=== PATIENT | male | born 1970 | race Two or more races ===

== ENCOUNTER 2017-11-18 13:55 | Inpatient (IN) | payer OTHER ==
[2017-11-18 15:13] VITALS: BMI 25.8
--- NOTE | 2017-11-18 18:50 | HP ---
Admission ROS [facility] Chief Complaint: PCP, Marijuana, Alcohol rehab Allergies/Adverse Reactions: Allergies Allergy/AdvReac Type Severity Reaction Status Date / Time No Known Allergies Allergy Verified 11/18/17 17:23 History of Present Illness: 47 yo male with hx of alcohol, nicotine, K2, PCP and marijuana dependence is here seeking rehab. Last detox [facility] 11/13/17 -11/17/17. Chris suicidal / homicidal ideation or hx of suicide attempts. PMHX: asthma, IROQUOIS (L) , learning disability, depression, anxiety. Longest period of sobriety 8 years. Exam Limitations: No Limitations - Ebola screening Have you traveled outside of the country in the last 21 days: No (N) Have you had contact with anyone from an Ebola affected area: No Have you been sick,other than usual withdrawal symptoms: No Do you have a fever: No - Review of Systems Constitutional: Changes in sleep EENT: reports: See HPI, Hearing Loss (Left hearing) Respiratory: reports: Other (reports seen at [facility] for CP and given asthma) Cardiac: reports: No Symptoms Reported GI: reports: No Symptoms Reported : reports: No Symptoms Reported Musculoskeletal: reports: Joint Pain Integumentary: reports: No Symptoms Reported Neuro: reports: No Symptoms reported Endocrine: reports: Increased Thirst Hematology: reports: No Symptoms Reported Psychiatric: reports: Orientated x3, Anxious Other Systems: Reviewed and Negative Patient History - Patient Medical History Hx Anemia: No Hx Asthma: Yes (on inhaler. Last exacrbation 2 weeks ago.) Hx Chronic Obstructive Pulmonary Disease (COPD): No Hx Cancer: No Hx Cardiac Disorders: No Hx Congestive Heart Failure: No Hx Hypertension: No Hx Hypercholesterolemia: No Hx Pacemaker: No HX Cerebrovascular Accident: No Hx Seizures: No Hx Dementia: No Hx Diabetes: No Hx Gastrointestinal Disorders: No Hx Liver Disease: No Hx Genitourinary Disorders: No Hx Sexually Transmitted Disorders: No Hx Renal Disease (ESRD): No Hx Thyroid Disease: No Hx Human Immunodeficiency Virus (HIV): No (Negative 2017) Hx Hepatitis C: No Hx Depression: Yes (On meds. Seen by S because of expressed suicide thoughts. ) Hx Suicide Attempt: No Hx Bipolar Disorder: Yes Hx Schizophrenia: No - Patient Surgical History Past Surgical History: Yes Hx Neurologic Surgery: No Hx Cataract Extraction: No Hx Cardiac Surgery: No Hx Lung Surgery: Yes (RT LUNG) Hx Breast Surgery: No Hx Breast Biopsy: No Hx Abdominal Surgery: No Hx Appendectomy: No Hx Cholecystectomy: No Hx Genitourinary Surgery: No Hx Section: No Hx Orthopedic Surgery: No Anesthesia Reaction: No - PPD History Documented Results: Negative w/proof Date: 08/03/17 PPD to be Administered?: Yes - Smoking Cessation Smoking history: Current every day smoker Have you smoked in the past 12 months: Yes Aproximately how many cigarettes per day: 10 Hx Chewing Tobacco Use: No Initiated information on smoking cessation: Yes 'Breaking Loose' booklet given: 11/18/17 - Substance & Tx. History Hx Alcohol Use: Yes Hx Substance Use: Yes Substance Use Type: Alcohol, Marijuana Hx Substance Use Treatment: Yes (Last detox [facility] 11/13/17 -11/17/17) - Substances Abused Alcohol Route: Oral Frequency: Daily Amount used: 1 pint Date of Last Use: 11/17/17 PCP Route: Smoking Frequency: 3-6 times per week Amount used: 2 bags Age of first use: 47 Date of Last Use: 11/13/17 Marijuana/Hashish Route: Smoking Frequency: Daily Amount used: 2 bags Age of first use: 11 Date of Last Use: 11/17/17 Family Disease History - Family Disease History Family Disease History: Diabetes: Father, Mother (Breast Ca), Heart Disease: Father, CA: Mother Admission Physical Exam S - Vital Signs Vital Signs: Vital Signs - 24 hr 11/18/17 15:10 Temperature 98.6 F Pulse Rate 101 H Respiratory 18 Rate Blood Pressure 117/77 - Physical General Appearance: Yes: Disheveled, Thin, Anxious HEENTM: Yes: EOMI, Normal ENT Inspection, Normocephalic, Normal Voice, CELSA, Pharynx Normal, Tm's normal, Other (IROQUOIS (L), poor dentition) Respiratory: Yes: Chest Non-Tender, Lungs Clear, Normal Breath Sounds, No Respiratory Distress, No Accessory Muscle Use Neck: Yes: Within Normal Limits Breast: Yes: Breast Exam Deferred Cardiology: Yes: Regular Rhythm, Regular Rate Abdominal: Yes: Normal Bowel Sounds, Non Tender, Flat, Soft Genitourinary: Yes: Within Normal Limits Back: Yes: Normal Inspection Musculoskeletal: Yes: full range of Motion, Gait Steady, Pelvis Stable, Back pain Neurological: Yes: resolution agent II-XII NML intact, Fully Oriented, Alert, Motor Strength 5/5, Normal Response, Depressed Affect Integumentary: Yes: Normal Color, Dry, Warm Lymphatic: Yes: Within Normal Limits - Diagnostic (1) Back pain Current Visit: Yes Status: Acute Qualifiers: Back pain location: low back pain Chronicity: acute Back pain laterality : midline Sciatica presence: without sciatica Qualified Code(s): M54.5 - Low back pain (2) Alcohol dependence with uncomplicated withdrawal Current Visit: Yes Status: Acute (3) Nicotine dependence Current Visit: No Status: Acute Qualifiers: Nicotine product type: cigarettes Substance use status: in withdrawal Qualified Code(s): F17.213 - Nicotine dependence, cigarettes, with withdrawal (4) Phencyclidine dependence Current Visit: Yes Status: Acute (5) Asthma Current Visit: Yes Status: Chronic Qualifiers: Asthma severity: unspecified severity Asthma persistence: unspecified Asthma complication type: uncomplicated Qualified Code(s): J45.909 - Unspecified asthma, uncomplicated (6) Depression Current Visit: Yes Status: Chronic Qualifiers: Depression Type: unspecified Qualified Code(s): F32.9 - Major depressive disorder, single episode, unspecified (7) Learning disability Current Visit: Yes Status: Chronic BHS Breath Alcohol Content Breath Alcohol Content: 0 Urine Drug Screen - Results Drug Screen Negative: Yes Urine Drug Screen Results: THC-Marijuana, BZO-Benzodiazepines Inpatient Rehab Admission - Initial Determination Are CD services needed?: Yes Free of communicable disease: Yes Not in need of hospitalization: Yes - Rehab Admission Criteria Previous failed treatment: Yes Poor recovery environment: Yes Comorbidities: Yes Lacks judgement: Yes Patient is meeting Inpatient Rehab admission criteria:: Yes
[2017-11-18] MEDS ORDERED: ALBUTEROL SO4 2.5/IPRATROPIUM 0.5 INH SOL 3 ML VIAL.NEB. NEB PRN (18:57)
[2017-11-18] MEDS ORDERED: ALBUTEROL SO4 8 GM HFA INHALER IH PRN (19:00)
[2017-11-18] MEDS ORDERED: guaiFENesin/D-METHORPHAN HB 10 ML UNIT-DOSE CUPS PO PRN (19:07)
[2017-11-18] MEDS ORDERED: P-EPHED 60MG/TRIPROLIDI 2.5MG TABLET PO PRN (19:07)
[2017-11-18] MEDS ORDERED: LOPERAMIDE HCL 2 MG CAPSULE PO PRN (19:07)
[2017-11-18] MEDS ORDERED: MAG HYDROX/AL HYDROX/SIMETH 30 ML UNIT-DOSE CUP PO PRN (19:07)
[2017-11-18] MEDS ORDERED: MENTHOL/PHENOL 1 EACH UD MM PRN (19:07)
[2017-11-18] MEDS ORDERED: MAGNESIUM HYDROX 2400MG/30ML ORAL SUSPENSION 30 ML CUP PO PRN (19:07)
[2017-11-18] MEDS ORDERED: MAGNESIUM CITRATE 300 ML BOTTLE PO PRN (19:07)
[2017-11-18] MEDS ORDERED: NICOTINE POLACRILEX 2 MG GUM BC PRN (19:07)
[2017-11-18] MEDS ORDERED: ACETAMINOPHEN 325 MG TABLET (FP) PO PRN (19:07)
[2017-11-18] MEDS: THIAMINE HCL 100 MG TABLET (FP) PO SCH (22:07)
[2017-11-18] MEDS: IBUPROFEN 400 MG TABLET (FP) PO PRN (22:07)
[2017-11-18] MEDS: MELATONIN 5 MG TABLETS PO PRN (22:07)
[2017-11-19 02:16] LABS: URINE APPEARANCE CLEAR; URINE BILIRUBIN NEGATIVE (<2.0 mg/dL); URINE COLOR YELLOW; URINE GLUCOSE (UA) NEGATIVE (NEGATIVE); URINE KETONE NEGATIVE (NEGATIVE); URINE LEUK ESTERASE NEGATIVE (NEGATIVE); URINE NITRITE NEGATIVE (NEGATIVE); URINE PROTEIN NEGATIVE (NEGATIVE); URINE UROBILINOGEN NEGATIVE mg/dL (0.2-1.0)
[2017-11-19] MEDS: hydrOXYzine PAMOATE 50 MG CAPSULE (FP) PO PRN ×2 (06:09→21:55)
[2017-11-19] MEDS ORDERED: LIDOCAINE 5% TOPICAL PATCH TP SCH (10:00)
[2017-11-19] MEDS ORDERED: NICOTINE 14 MG/24 HOURS TOPICAL PATCH TD SCH (10:00)
[2017-11-19] MEDS ORDERED: PANTOPRAZOLE 40 MG TABLET (FP) PO SCH (10:00)
[2017-11-19] MEDS ORDERED: PATIENT'S OWN MEDICATION (NON-FORMULARY) (Glycopyrrolate/Formoterol Fum [Bevespi Aerospher IH SCH (10:00)
[2017-11-19] MEDS ORDERED: PRENATAL VITAMINS W/ FOLIC ACID TABLET (FP) PO SCH (10:00)
--- NOTE | 2017-11-19 14:26 | EKG ---
Test Reason : Blood Pressure : / mmHG Vent. Rate : 091 BPM Atrial Rate : 091 BPM P-R Int : 166 ms QRS Dur : 080 ms QT Int : 320 ms P-R-T Axes : 074 063 042 degrees QTc Int : 393 ms NORMAL SINUS RHYTHM NORMAL ECG WHEN COMPARED WITH ECG OF 13-NOV-2017 23:40, NO SIGNIFICANT CHANGE WAS FOUND Confirmed by WINNIE MANJARREZ MD ([id number]) on 11/19/2017 2:26:02 PM Referred By: Confirmed By:WINNIE MANJARREZ MD
[2017-11-19] MEDS: IBUPROFEN 400 MG TABLET (FP) PO PRN (17:41)
[2017-11-19] MEDS: THIAMINE HCL 100 MG TABLET (FP) PO SCH (21:54)
[2017-11-19] MEDS: MELATONIN 5 MG TABLETS PO PRN (21:55)
[2017-11-19] MEDS ORDERED: LIDOCAINE PATCH REMOVAL MC SCH (22:00)
[2017-11-20 07:15] VITALS: BP 115/63; PULSE 70; TEMP 97.5
== END 2017-11-20 08:00 | disposition left against medical advice (07) | DRG 770 ==
LOC: YASAS 13:55 → Y3W 18:17
PROVIDERS: ADMIT Psychiatry & Neurology Psychiatry; ATTEND Psychiatry & Neurology Psychiatry
PROC: HZ2ZZZZ Detoxification Services for Substance Abuse Treatment (ICD-10-PCS; principal; 2017-11-18)
DX: F10.230 Alcohol dependence with withdrawal, uncomplicated (principal); F16.20 Hallucinogen dependence, uncomplicated; F17.213 Nicotine dependence, cigarettes, with withdrawal; F32.9 Major depressive disorder, single episode, unspecified; F81.9 Developmental disorder of scholastic skills, unspecified; J45.909 Unspecified asthma, uncomplicated; M54.5 Low back pain
CPT/HCPCS: 81003; 93005; 93010

== ENCOUNTER 2019-12-15 09:05 | Inpatient (IN) | payer OTHER ==
--- NOTE | 2019-12-15 09:46 | BHS.RME ---
Substance Use & Tx History - Substance Use History Alcohol Substance amount: 6 pack x 24 ounce beer, Vodka one pint Frequency of use: Daily Substance route: Oral Date of Last Use: 12/14/19 Cocaine- Powder Substance amount: 2 grams Frequency of use: Daily Substance route: Inhalation (ex: sniffing or snorting) Date of Last Use: 12/08/19 Marijuana/Hashish Substance amount: 2 joints Frequency of use: More than 3 times per week Substance route: Smoking Date of Last Use: 11/15/19 PCP Substance amount: 2 bags Frequency of use: Less than 3 times per week Substance route: Smoking Date of Last Use: 12/08/19 Physical/Psych/Mental Status - Behavior General Behavior: Increased activity (restlessness, agitation) Eye Contact: Normal - Cooperativeness Cooperativeness: Cooperative - Thinking Thought Processes: Tight Thought content: Future oriented - Physical Health Problems Is patient presently having any pain?: Yes (chronic pain) Does patient presently have any injuries (include location): Yes (right wrist fracture several days ago, [facility]) Does patient currently have a fever: No CIWA Nausea/Vomitin-No Nausea/No Vomiting Muscle Tremors: 1-None Visible, but [place] Anxiety: 2 Agitation: 2 Paroxysmal Sweats: 1-Minimal Palms Moist Orientation: 2-Disoriented Date<2 days Tacttile Disturbances: 0-None Auditory Disturbances: 0-None Visual Disturbances: 0-None Headache: 2-Mild CIWA-Ar Total Score: 10
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
[2019-12-15] MEDS ORDERED: chlordiazePOXIDE HCL 25 MG CAPSULE PO PRN (12:42)
[2019-12-15] MEDS ORDERED: BISMUTH SUBSALICYLATE 524 MG/30 ML UD PO PRN (12:42)
[2019-12-15] MEDS ORDERED: ACETAMINOPHEN 325 MG TABLET (FP) PO PRN (12:42)
[2019-12-15] MEDS ORDERED: MAGNESIUM CITRATE 300 ML BOTTLE PO PRN (12:42)
[2019-12-15] MEDS ORDERED: METHOCARBAMOL 500 MG TABLET PO PRN (12:42)
[2019-12-15] MEDS ORDERED: MAG HYDROX/AL HYDROX/SIMETH 30 ML UNIT-DOSE CUP PO PRN (12:42)
[2019-12-15] MEDS ORDERED: NICOTINE POLACRILEX 2 MG GUM BUC PRN (12:42)
[2019-12-15] MEDS ORDERED: MENTHOL/PHENOL 1 EACH UD MM PRN (12:42)
[2019-12-15] MEDS ORDERED: IBUPROFEN 400 MG TABLET (FP) PO PRN (12:42)
[2019-12-15] MEDS ORDERED: ONDANSETRON *ODT* 4 MG TABLET SL PRN (12:42)
[2019-12-15] MEDS ORDERED: MAGNESIUM HYDROX 2400MG/30ML ORAL SUSPENSION 30 ML CUP PO PRN (12:42)
[2019-12-15] MEDS ORDERED: ALBUTEROL SO4 HFA INHALER IH PRN (12:46)
[2019-12-15 12:48] VITALS: BMI 22.5
[2019-12-15] MEDS ORDERED: ONDANSETRON *ODT* 4 MG TABLET SL ONE (14:00)
[2019-12-15] MEDS: PANTOPRAZOLE 20 MG TABLET PO SCH (14:13)
[2019-12-15] MEDS: NICOTINE 7 MG/24 HOURS TOPICAL PATCH TD SCH (14:14)
[2019-12-15 16:49] LABS: HEMATOCRIT 45.3 % (35.4-49); HEMOGLOBIN 15.2 GM/dL (11.7-16.9); MCH 32.1 pg (25.7-33.7); MCHC 33.7 g/dl (32.0-35.9); MEAN CELL VOLUME 95.4 fl (80-96); MEAN PLT VOLUME 8.7 fl (7.5-11.1); PLATELET COUNT 229 K/MM3 (134-434); RBC 4.74 M/mm3 (4.00-5.60); RDW 14.8 % (11.9-15.9)
[2019-12-15 17:01] LABS: ALBUMIN 3.8 g/dl (3.4-5.0); BILIRUBIN,TOTAL 0.6 mg/dL (0.2-1); BLOOD UREA NITROGEN 18.1 mg/dL (7-18); CREATININE 0.7 mg/dL (0.55-1.3); POTASSIUM 4.2 mmol/L (3.5-5.1); TOT PROT 7.1 g/dl (6.4-8.2)
[2019-12-15] MEDS: chlordiazePOXIDE HCL 25 MG CAPSULE PO SCH ×2 (18:36→22:39)
[2019-12-15] MEDS: NAPROXEN 500 MG TABLET PO PRN (22:13)
[2019-12-15] MEDS: MELATONIN 5 MG TABLETS PO SCH (22:15)
[2019-12-15] MEDS: THIAMINE HCL 100 MG TABLET (FP) PO SCH (22:39)
[2019-12-16] MEDS: chlordiazePOXIDE HCL 25 MG CAPSULE PO SCH ×4 (05:16→22:18)
[2019-12-16] MEDS: NAPROXEN 500 MG TABLET PO PRN ×2 (08:33→22:18)
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
--- NOTE | 2019-12-16 09:19 | PN ---
Teaching Attending Note Name of Resident: Kathleen Shannon ATTENDING PHYSICIAN STATEMENT I saw and evaluated the patient. I reviewed the resident's note and discussed the case with the resident. I agree with the resident's findings and plan as documented. SUBJECTIVE: OBJECTIVE: ASSESSMENT AND PLAN: 1. Alcohol use disorder Plan 1. Librium protocol
[2019-12-16] MEDS: PRENATAL VITAMINS W/ FOLIC ACID TABLET (FP) PO SCH (10:38)
[2019-12-16] MEDS: NICOTINE 7 MG/24 HOURS TOPICAL PATCH TD SCH (10:38)
[2019-12-16] MEDS: PANTOPRAZOLE 20 MG TABLET PO SCH (10:38)
[2019-12-16] MEDS: ACETAMINOPHEN 325 MG TABLET (FP) PO PRN ×2 (10:41→17:16)
--- NOTE | 2019-12-16 12:30 | PN ---
S CIWA - CIWA Score Nausea/Vomitin-No Nausea/No Vomiting Muscle Tremors: 3 Anxiety: 2 Agitation: 2 Paroxysmal Sweats: 2 Orientation: 0-Oriented Tacttile Disturbances: 0-None Auditory Disturbances: 0-None Visual Disturbances: 0-None Headache: 0-None Present CIWA-Ar Total Score: 9 BHS Progress Note (SOAP) Subjective: sweats shakes interrupted sleep agitation Objective: 12/16/19 12:28 Vital Signs Temperature 97.2 F L 12/16/19 09:01 Pulse Rate 75 12/16/19 09:01 Respiratory Rate 16 12/16/19 09:01 Blood Pressure 126/76 12/16/19 09:01 O2 Sat by Pulse Oximetry (%) 98 12/16/19 09:01 Laboratory Tests 12/15/19 12/15/19 12/15/19 12:00 12:00 12:00 WBC 11.0 H RBC 4.74 Hgb 15.2 Hct 45.3 MCV 95.4 MCH 32.1 MCHC 33.7 RDW 14.8 Plt Count 229 D MPV 8.7 Sodium 140 Potassium 4.2 Chloride 108 H Carbon Dioxide 26 Anion Gap 7 L BUN 18.1 H Creatinine 0.7 Est GFR (CKD-EPI)AfAm 127.53 Est GFR (CKD-EPI)NonAf 110.04 Random Glucose 97 Calcium 9.0 Total Bilirubin 0.6 AST 24 ALT 40 Alkaline Phosphatase 78 Total Protein 7.1 Albumin 3.8 Syphilis Serology Non-reactive aaox3 ambulating labs noted elevated BUN; encourage fluid intake right hand cover with lucina bandage for support noted. pt is able to move fingers freely. encourage motrin 600mg for pain. Assessment: 12/16/19 12:29 withdrawals Plan: continue detox increase fluids motrin 600mg prn
[2019-12-16] MEDS: MELATONIN 5 MG TABLETS PO SCH (22:18)
[2019-12-16] MEDS: THIAMINE HCL 100 MG TABLET (FP) PO SCH (22:18)
[2019-12-17] MEDS: chlordiazePOXIDE HCL 25 MG CAPSULE PO SCH ×4 (06:31→22:27)
[2019-12-17] MEDS: ACETAMINOPHEN 325 MG TABLET (FP) PO PRN (06:33)
[2019-12-17] MEDS: PRENATAL VITAMINS W/ FOLIC ACID TABLET (FP) PO SCH (11:11)
[2019-12-17] MEDS: PANTOPRAZOLE 20 MG TABLET PO SCH (11:11)
[2019-12-17] MEDS: NAPROXEN 500 MG TABLET PO PRN ×2 (11:15→22:29)
[2019-12-17] MEDS: NICOTINE 7 MG/24 HOURS TOPICAL PATCH TD SCH (11:18)
--- NOTE | 2019-12-17 13:42 | PN ---
S CIWA - CIWA Score Nausea/Vomitin-No Nausea/No Vomiting Muscle Tremors: 2 Anxiety: 3 Agitation: 2 Paroxysmal Sweats: 1-Minimal Palms Moist Orientation: 0-Oriented Tacttile Disturbances: 0-None Auditory Disturbances: 0-None Visual Disturbances: 0-None Headache: 0-None Present CIWA-Ar Total Score: 8 BHS Progress Note (SOAP) Subjective: Anxious, Body Aches Interrupted Sleep. Objective: Patient A & O X 3, Observed Ambulating on Detox Unit Unassisted. In No Acute Distress. 12/17/19 13:39 Vital Signs Temperature 98.7 F 12/17/19 08:39 Pulse Rate 74 12/17/19 08:39 Respiratory Rate 18 12/17/19 08:39 Blood Pressure 118/71 12/17/19 08:39 O2 Sat by Pulse Oximetry (%) 98 12/17/19 08:39 Laboratory Tests 12/15/19 12/15/19 12/15/19 12:00 12:00 12:00 WBC 11.0 H RBC 4.74 Hgb 15.2 Hct 45.3 MCV 95.4 MCH 32.1 MCHC 33.7 RDW 14.8 Plt Count 229 D MPV 8.7 Sodium 140 Potassium 4.2 Chloride 108 H Carbon Dioxide 26 Anion Gap 7 L BUN 18.1 H Creatinine 0.7 Est GFR (CKD-EPI)AfAm 127.53 Est GFR (CKD-EPI)NonAf 110.04 Random Glucose 97 Calcium 9.0 Total Bilirubin 0.6 AST 24 ALT 40 Alkaline Phosphatase 78 Total Protein 7.1 Albumin 3.8 Syphilis Serology Non-reactive COVID-19 ([facility]) 12/15/19 12:05 WBC RBC Hgb Hct MCV MCH MCHC RDW Plt Count MPV Sodium Potassium Chloride Carbon Dioxide Anion Gap BUN Creatinine Est GFR (CKD-EPI)AfAm Est GFR (CKD-EPI)NonAf Random Glucose Calcium Total Bilirubin AST ALT Alkaline Phosphatase Total Protein Albumin Syphilis Serology COVID-19 ([facility]) Not detected Lab Results Noted. Patient denies chest pain and SOB. Patient denies any unusual urinary complaints (burning, pain, frequency, urgency, hesitancy, visualization of blood in urine). Patient afebrile. Result of Admission COVID-19 test noted: 'Not detected" 12/17/19 13:40 Assessment: 12/17/19 13:38 WITHDRAWAL SYMPTOMS. LEUKOCYTOSIS. Plan: Continue Detox. Increase Daily Oral Water Intake.
[2019-12-17] MEDS: THIAMINE HCL 100 MG TABLET (FP) PO SCH (22:27)
[2019-12-17] MEDS: MELATONIN 5 MG TABLETS PO SCH (22:28)
[2019-12-18] MEDS ORDERED: chlordiazePOXIDE HCL 10 MG CAPSULE PO PRN
[2019-12-18] MEDS: chlordiazePOXIDE HCL 10 MG CAPSULE PO SCH ×3 (05:23→17:57)
[2019-12-18] MEDS: NAPROXEN 500 MG TABLET PO PRN ×2 (05:26→17:57)
[2019-12-18] MEDS: PRENATAL VITAMINS W/ FOLIC ACID TABLET (FP) PO SCH (10:11)
[2019-12-18] MEDS: PANTOPRAZOLE 20 MG TABLET PO SCH (10:11)
[2019-12-18] MEDS: NICOTINE 7 MG/24 HOURS TOPICAL PATCH TD SCH (10:11)
[2019-12-18] MEDS: ACETAMINOPHEN 325 MG TABLET (FP) PO PRN (10:12)
--- NOTE | 2019-12-18 13:27 | PN ---
S CIWA - CIWA Score Nausea/Vomitin-No Nausea/No Vomiting Muscle Tremors: 2 Anxiety: 1-Mildly Anxious Agitation: 1-Slight > Activity Paroxysmal Sweats: 2 Orientation: 0-Oriented Tacttile Disturbances: 0-None Auditory Disturbances: 0-None Visual Disturbances: 0-None Headache: 0-None Present CIWA-Ar Total Score: 6 BHS Progress Note (SOAP) Subjective: Agitated Objective: 12/18/19 13:23 Last Vital Signs Temp Pulse Resp BP Pulse Ox 97.5 F L 85 18 129/79 98 12/18/19 08:30 12/18/19 08:30 12/18/19 08:30 12/18/19 08:30 12/18/19 07:11 Mildly elevated b/p noted Laboratory Tests 12/15/19 12/15/19 12/15/19 12:00 12:00 12:00 WBC 11.0 H RBC 4.74 Hgb 15.2 Hct 45.3 MCV 95.4 MCH 32.1 MCHC 33.7 RDW 14.8 Plt Count 229 D MPV 8.7 Sodium 140 Potassium 4.2 Chloride 108 H Carbon Dioxide 26 Anion Gap 7 L BUN 18.1 H Creatinine 0.7 Est GFR (CKD-EPI)AfAm 127.53 Est GFR (CKD-EPI)NonAf 110.04 Random Glucose 97 Calcium 9.0 Total Bilirubin 0.6 AST 24 ALT 40 Alkaline Phosphatase 78 Total Protein 7.1 Albumin 3.8 Syphilis Serology Non-reactive COVID-19 ([facility]ONORA) 12/15/19 12:05 WBC RBC Hgb Hct MCV MCH MCHC RDW Plt Count MPV Sodium Potassium Chloride Carbon Dioxide Anion Gap BUN Creatinine Est GFR (CKD-EPI)AfAm Est GFR (CKD-EPI)NonAf Random Glucose Calcium Total Bilirubin AST ALT Alkaline Phosphatase Total Protein Albumin Syphilis Serology COVID-19 ([facility]ONORA) Not detected Labs reviewed: wbc 11 (high) Assessment: 12/18/19 13:25 Withdrawal sxs Noted with mildly elevated b/p and leukocytosis Plan: Continue detox Encourage PO water intake Mildly elevated b/p: denies htn, could be r/t withdrawal, monitor b/p Leukocytosis: asymptomatic, repeat CBC, send UA
[2019-12-19] MEDS: chlordiazePOXIDE HCL 10 MG CAPSULE PO SCH ×3 (00:10→18:25)
[2019-12-19] MEDS: MELATONIN 5 MG TABLETS PO SCH ×2 (00:10→23:05)
[2019-12-19] MEDS: THIAMINE HCL 100 MG TABLET (FP) PO SCH ×2 (00:10→22:16)
[2019-12-19] MEDS: ACETAMINOPHEN 325 MG TABLET (FP) PO PRN ×2 (05:29→18:25)
--- NOTE | 2019-12-19 09:18 | EKG ---
Test Reason : Blood Pressure : / mmHG Vent. Rate : 079 BPM Atrial Rate : 079 BPM P-R Int : 176 ms QRS Dur : 084 ms QT Int : 346 ms P-R-T Axes : 081 058 055 degrees QTc Int : 396 ms NORMAL SINUS RHYTHM NORMAL ECG WHEN COMPARED WITH ECG OF 10-DEC-2017 20:25, NO SIGNIFICANT CHANGE WAS FOUND Confirmed by GRADY ACEVEDO MD ([id number]) on 12/19/2019 9:18:09 AM Referred By: Confirmed By:GRADY ACEVEDO MD
[2019-12-19] MEDS: PRENATAL VITAMINS W/ FOLIC ACID TABLET (FP) PO SCH (11:19)
[2019-12-19] MEDS: PANTOPRAZOLE 20 MG TABLET PO SCH (11:19)
[2019-12-19] MEDS: NICOTINE 7 MG/24 HOURS TOPICAL PATCH TD SCH (11:19)
[2019-12-19] MEDS: NAPROXEN 500 MG TABLET PO PRN ×2 (11:26→22:16)
[2019-12-19 12:02] LABS: PH,URINE 5.5 (5.0-8.0); URINE APPEARANCE Clear; URINE BILIRUBIN Negative (NEGATIVE); URINE COLOR Yellow; URINE GLUCOSE (UA) Negative (NEGATIVE); URINE KETONE Negative (NEGATIVE); URINE LEUK ESTERASE Negative (NEGATIVE); URINE NITRITE Negative (NEGATIVE); URINE PROTEIN Negative (NEGATIVE); URINE UROBILINOGEN 0.2 mg/dL (0.2-1.0)
--- NOTE | 2019-12-19 13:12 | PN ---
S CIWA - CIWA Score Nausea/Vomitin-Mild Nausea/No Vomiting Muscle Tremors: 2 Anxiety: 2 Agitation: 2 Paroxysmal Sweats: No Perspiration Orientation: 0-Oriented Tacttile Disturbances: 0-None Auditory Disturbances: 0-None Visual Disturbances: 0-None Headache: 1-Very Mild CIWA-Ar Total Score: 8 BHS Progress Note (SOAP) Subjective: alert,irritable,anxious,interrupted sleep,pain in the body and right wrist,right wrist with immobilization treated at [facility] Objective: 12/19/19 13:11 Vital Signs Temperature 97.3 F L 12/19/19 05:05 Pulse Rate 67 12/19/19 05:05 Respiratory Rate 16 12/19/19 05:05 Blood Pressure 102/61 12/19/19 05:05 O2 Sat by Pulse Oximetry (%) 99 12/19/19 05:05 Assessment: 12/19/19 13:11 withdrawal symptom Plan: continue detox librium regimen ,discharge in am,patient will follow up with orthopedist in [facility]
[2019-12-19 13:44] LABS: EPI CELLS 1.4 /uL (0-25.1); HYALINE CASTS 0 /uL (0-3.1); URINE BACTERIA 17.1 /uL (0-1359); URINE RBC 1.7 /uL (0-23.9); URINE WBC 0.7 /uL (0-25.8)
[2019-12-19 16:02] LABS: EOS % 2.6 % (0-4.5); HEMATOCRIT 48.7 % (35.4-49); LYMPH % 25.2 % (8-40); MCH 31.3 pg (25.7-33.7); MCHC 32.8 g/dl (32.0-35.9); MEAN CELL VOLUME 95.5 fl (80-96); MEAN PLT VOLUME 8.8 fl (7.5-11.1); MONO % 5.7 % (3.8-10.2); NEUT % 65.5 % (42.8-82.8); PLATELET COUNT 223 K/MM3 (134-434); RDW 14.7 % (11.9-15.9); WHITE BLOOD COUNT 8.8 K/mm3 (4.0-10.0)
[2019-12-20] MEDS ORDERED: chlordiazePOXIDE HCL 10 MG CAPSULE PO ONE (05:00)
[2019-12-20 07:26] VITALS: TEMP 97.9
--- NOTE | 2019-12-20 09:09 | EKG ---
Test Reason : Blood Pressure : / mmHG Vent. Rate : 081 BPM Atrial Rate : 081 BPM P-R Int : 176 ms QRS Dur : 076 ms QT Int : 336 ms P-R-T Axes : 082 064 051 degrees QTc Int : 390 ms NORMAL SINUS RHYTHM POSSIBLE LEFT ATRIAL ENLARGEMENT BORDERLINE ECG WHEN COMPARED WITH ECG OF 18-DEC-2019 17:23, NO SIGNIFICANT CHANGE WAS FOUND Confirmed by Rangel Sanchez MD ([id number]) on 12/20/2019 9:09:02 AM Referred By: Confirmed By:Rangel Sanchez MD
[2019-12-20 09:51] VITALS: BP 100/62; PULSE 100
--- NOTE | 2019-12-20 10:37 | PN ---
[facility] CIWA - CIWA Score Nausea/Vomitin-No Nausea/No Vomiting Muscle Tremors: None Anxiety: 1-Mildly Anxious Agitation: 0-Normal Activity Paroxysmal Sweats: No Perspiration Orientation: 0-Oriented Tacttile Disturbances: 0-None Auditory Disturbances: 0-None Visual Disturbances: 0-None Headache: 0-None Present CIWA-Ar Total Score: 1 S Progress Note (SOAP) Subjective: alert,no complaint Objective: 12/20/19 10:36 Vital Signs Temperature 97.9 F 12/20/19 09:15 Pulse Rate 100 H 12/20/19 09:15 Respiratory Rate 18 12/20/19 09:15 Blood Pressure 100/62 12/20/19 09:15 O2 Sat by Pulse Oximetry (%) 96 12/20/19 09:15 Assessment: 12/20/19 10:36 detox completed,no withdrawal symptom Plan: srable for discharge today,follow up with after care program as arrangement [facility]
--- NOTE | 2019-12-20 10:39 | DS ---
[facility] Detox Discharge Summary Admission Date: 12/15/19 Discharge Date: 12/20/19 - History Present History: Alcohol Dependence, Cannabis Dependence, Cocaine Dependence, Pcp Dependence Additional Comments: alert,oriented x 3 ambulation on the unit lung clear on auscultation bilaterally abdomen soft,no distension,no pain or tenderness right wrist on splint detox completed,no withdrawal symptom stable for discharge today follow up with after care program [facility] as arrangement total time of discharge 35 minutes Pertinent Past History: bipolar 2 disorder depression fractue of right wrist - Physical Exam Results Vital Signs: Vital Signs Temperature 97.9 F 12/20/19 09:15 Pulse Rate 100 H 12/20/19 09:15 Respiratory Rate 18 12/20/19 09:15 Blood Pressure 100/62 12/20/19 09:15 O2 Sat by Pulse Oximetry (%) 96 12/20/19 09:15 Pertinent Admission Physical Exam Findings: withdrawal signs and symptom Laboratory Last Values WBC 8.8 K/mm3 (4.0-10.0) 12/19/19 09:05 RBC 5.10 M/mm3 (4.00-5.60) 12/19/19 09:05 Hgb 16.0 GM/dL (11.7-16.9) 12/19/19 09:05 Hct 48.7 % (35.4-49) 12/19/19 09:05 MCV 95.5 fl (80-96) 12/19/19 09:05 MCH 31.3 pg (25.7-33.7) 12/19/19 09:05 MCHC 32.8 g/dl (32.0-35.9) 12/19/19 09:05 RDW 14.7 % (11.9-15.9) 12/19/19 09:05 Plt Count 223 K/MM3 (134-434) 12/19/19 09:05 MPV 8.8 fl (7.5-11.1) 12/19/19 09:05 Absolute Neuts (auto) 5.8 K/mm3 (1.5-8.0) 12/19/19 09:05 Neutrophils % 65.5 % (42.8-82.8) 12/19/19 09:05 Lymphocytes % 25.2 % (8-40) 12/19/19 09:05 Monocytes % 5.7 % (3.8-10.2) 12/19/19 09:05 Eosinophils % 2.6 % (0-4.5) 12/19/19 09:05 Basophils % 1.0 % (0-2.0) 12/19/19 09:05 Nucleated RBC % 0 % (0-0) 12/19/19 09:05 Sodium 140 mmol/L (136-145) 12/15/19 12:00 Potassium 4.2 mmol/L (3.5-5.1) 12/15/19 12:00 Chloride 108 mmol/L (98-107) H 12/15/19 12:00 Carbon Dioxide 26 mmol/L (21-32) 12/15/19 12:00 Anion Gap 7 MMOL/L (8-16) L 12/15/19 12:00 BUN 18.1 mg/dL (7-18) H 12/15/19 12:00 Creatinine 0.7 mg/dL (0.55-1.3) 12/15/19 12:00 Est GFR (CKD-EPI)AfAm 127.53 12/15/19 12:00 Est GFR (CKD-EPI)NonAf 110.04 12/15/19 12:00 Random Glucose 97 mg/dL (74-106) 12/15/19 12:00 Calcium 9.0 mg/dL (8.5-10.1) 12/15/19 12:00 Total Bilirubin 0.6 mg/dL (0.2-1) 12/15/19 12:00 AST 24 U/L (15-37) 12/15/19 12:00 ALT 40 U/L (13-61) 12/15/19 12:00 Alkaline Phosphatase 78 U/L (45-117) 12/15/19 12:00 Total Protein 7.1 g/dl (6.4-8.2) 12/15/19 12:00 Albumin 3.8 g/dl (3.4-5.0) 12/15/19 12:00 Urine Color Yellow 12/19/19 08:15 Urine Appearance Clear 12/19/19 08:15 Urine pH 5.5 (5.0-8.0) 12/19/19 08:15 Ur Specific [place] 1.020 (1.010-1.035) 12/19/19 08:15 Urine Protein Negative (NEGATIVE) 12/19/19 08:15 Urine Glucose (UA) Negative (NEGATIVE) 12/19/19 08:15 Urine Ketones Negative (NEGATIVE) 12/19/19 08:15 Urine Blood Negative (NEGATIVE) 12/19/19 08:15 Urine Nitrite Negative (NEGATIVE) 12/19/19 08:15 Urine Bilirubin Negative (NEGATIVE) 12/19/19 08:15 Urine Urobilinogen 0.2 mg/dL (0.2-1.0) 12/19/19 08:15 Ur Leukocyte Esterase Negative (NEGATIVE) 12/19/19 08:15 Urine WBC (Auto) 0.7 /uL (0-25.8) 12/19/19 08:15 Urine RBC (Auto) 1.7 /uL (0-23.9) 12/19/19 08:15 Urine Casts (Auto) 0 /uL (0-3.1) 12/19/19 08:15 U Epithel Cells (Auto) 1.4 /uL (0-25.1) 12/19/19 08:15 Urine Bacteria (Auto) 17.1 /uL (0-1359) 12/19/19 08:15 Syphilis Serology Non-reactive (NONREACTIVE) 12/15/19 12:00 COVID-19 ([facility]) Not detected (Not Detected) 12/15/19 12:05 Vital Signs Temperature 97.9 F 12/20/19 09:15 Pulse Rate 100 H 12/20/19 09:15 Respiratory Rate 18 12/20/19 09:15 Blood Pressure 100/62 12/20/19 09:15 O2 Sat by Pulse Oximetry (%) 96 12/20/19 09:15 - Treatment Hospital Course: Detox Protocol Followed, Detoxed Safely, Responded well, Discharged Condition Good, Rehab Referral Accepted Patient has Accepted a Rehab Referral to: [facility] - Medication Discharge Medications: Ambulatory Orders Famotidine [Pepcid] 20 mg PO BID 5 Days #10 tablet 11/12/17 Glycopyrrolate/Formoterol Fum [Bevespi Aerosphere Inhaler] 10.7 gm IH DAILY #1 hfa.aer.ad 11/12/17 traZODone HCL [Trazodone HCl] 50 mg PO HS 12/04/17 Albuterol Sulfate Inhaler - [Ventolin HFA Inhaler -] 2 puff IH Q4H PRN #1 inhaler 12/17/17 Citalopram Hydrobromide [Celexa -] 10 mg PO DAILY 12/15/19 Naproxen [EC-Naprosyn] 500 mg PO BID 12/15/19 - Diagnosis (1) Alcohol dependence with uncomplicated withdrawal Current Visit: Yes Status: Acute (2) Cannabis dependence Current Visit: Yes Status: Acute (3) Cocaine abuse Current Visit: Yes Status: Acute (4) MDD (major depressive disorder) Current Visit: Yes Status: Acute (5) PCP dependence Current Visit: Yes Status: Acute (6) Bipolar II disorder Current Visit: No Status: Ruled-out (7) Fracture of right wrist Current Visit: Yes Status: Acute (8) Asthma Current Visit: Yes Status: Acute (9) GERD (gastroesophageal reflux disease) Current Visit: Yes Status: Acute (10) Fracture of right wrist Current Visit: Yes Status: Acute - AMA Did Patient Leave Against Medical Advice: No
[2019-12-20] MEDS: NICOTINE 7 MG/24 HOURS TOPICAL PATCH TD SCH (10:41)
[2019-12-20] MEDS: PANTOPRAZOLE 20 MG TABLET PO SCH (10:41)
[2019-12-20] MEDS: NAPROXEN 500 MG TABLET PO PRN (10:41)
[2019-12-20] MEDS: PRENATAL VITAMINS W/ FOLIC ACID TABLET (FP) PO SCH (10:41)
== END 2019-12-20 11:29 | disposition other institution (70) | DRG 774 ==
LOC: YASAS 09:05 → Y6N 13:35
PROVIDERS: ADMIT Allergy & Immunology; ATTEND Allergy & Immunology
PROC: HZ2ZZZZ Detoxification Services for Substance Abuse Treatment (ICD-10-PCS; principal; 2019-12-15)
DX: F10.230 Alcohol dependence with withdrawal, uncomplicated (principal); F14.20 Cocaine dependence, uncomplicated; F16.20 Hallucinogen dependence, uncomplicated; F12.20 Cannabis dependence, uncomplicated; F17.210 Nicotine dependence, cigarettes, uncomplicated; F32.9 Major depressive disorder, single episode, unspecified; F19.24 Other psychoactive substance dependence with psychoactive substance-induced mood disorder; F81.9 Developmental disorder of scholastic skills, unspecified; F19.282 Other psychoactive substance dependence with psychoactive substance-induced sleep disorder; D72.829 Elevated white blood cell count, unspecified; J45.20 Mild intermittent asthma, uncomplicated; K21.9 Gastro-esophageal reflux disease without esophagitis; M54.5 Low back pain; H91.90 Unspecified hearing loss, unspecified ear; R03.0 Elevated blood-pressure reading, without diagnosis of hypertension; Z91.018 Allergy to other foods; Z56.0 Unemployment, unspecified; Z59.0 Homelessness
CPT/HCPCS: 36415; 80053; 81003; 85025; 85027; 86780; 93005; 93010; U0003

== ENCOUNTER 2019-12-20 11:34 | Inpatient (IN) | payer OTHER ==
[2019-12-20] MEDS ORDERED: MAGNESIUM HYDROX 2400MG/30ML ORAL SUSPENSION 30 ML CUP PO PRN (12:34)
[2019-12-20] MEDS ORDERED: NICOTINE POLACRILEX 2 MG GUM BUC PRN (12:34)
[2019-12-20] MEDS ORDERED: LOPERAMIDE HCL 2 MG CAPSULE PO PRN (12:34)
[2019-12-20] MEDS ORDERED: MAG HYDROX/AL HYDROX/SIMETH 30 ML UNIT-DOSE CUP PO PRN (12:34)
[2019-12-20] MEDS ORDERED: IBUPROFEN 400 MG TABLET (FP) PO PRN (12:34)
[2019-12-20] MEDS ORDERED: MAGNESIUM CITRATE 300 ML BOTTLE PO PRN (12:34)
[2019-12-20] MEDS ORDERED: P-EPHED 60MG/TRIPROLIDI 2.5MG TABLET PO PRN (12:34)
[2019-12-20] MEDS ORDERED: guaiFENesin 200 MG/10 ML 10 ML UNIT-DOSE CUPS PO PRN (12:34)
[2019-12-20] MEDS ORDERED: MENTHOL/PHENOL 1 EACH UD MM PRN (12:34)
[2019-12-20] MEDS ORDERED: METHOCARBAMOL 500 MG TABLET PO PRN (12:37)
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
[2019-12-20] MEDS: NAPROXEN 500 MG TABLET PO PRN ×3 (14:13→21:15)
[2019-12-20] MEDS: hydrOXYzine PAMOATE 25 MG CAPSULE (FP) PO SCH ×3 (14:13→21:14)
--- NOTE | 2019-12-20 14:24 | HP ---
[facility] Rehab Assess/Revision - Admission History Admitted to Rehab from: [facility] Date of Admission to Rehab: 12/19.20 - Vital signs Vital Signs: Vital Signs Period Temp Pulse Resp BP Sys/Banuelos Pulse Ox Last 24 Hr 98.4 F 87 20 136/87 96 - Findings Detox History & Physical reviewed: Yes Concur with findings: Yes Comments/Additional Findings: for rehab as protocol Inpatient Rehab Admission - Rehab Decision to Admit Inpatient rehab admission?: Yes - Initial Determination Are CD services needed?: Yes Free of communicable disease: Yes Not in need of hospitalization: Yes - Rehab Admission Criteria Previous failed treatment: Yes Poor recovery environment: Yes Comorbidities: Yes Lacks judgement: No Patient is meeting Inpatient Rehab admission criteria:: Yes
[2019-12-20] MEDS: CITALOPRAM HYDROBROMIDE 10 MG TABLET PO SCH (15:08)
[2019-12-20] MEDS ORDERED: PT OWN MED DRAWER 7, Y5N ONE (19:06)
[2019-12-20] MEDS: traZODone HCL 50 MG TABLET (FP) PO SCH (21:14)
[2019-12-20] MEDS: THIAMINE HCL 100 MG TABLET (FP) PO SCH (21:14)
[2019-12-20] MEDS: MELATONIN 5 MG TABLETS PO SCH (21:14)
[2019-12-21] MEDS: hydrOXYzine PAMOATE 25 MG CAPSULE (FP) PO SCH ×6 (00:45→21:04)
[2019-12-21] MEDS ORDERED: PT OWN MED DRAWER 7, Y5N ONE (09:29)
[2019-12-21] MEDS: PRENATAL VITAMINS W/ FOLIC ACID TABLET (FP) PO SCH (10:14)
[2019-12-21] MEDS: ALBUTEROL SO4 HFA INHALER IH PRN (10:14)
[2019-12-21] MEDS: CITALOPRAM HYDROBROMIDE 10 MG TABLET PO SCH (10:15)
[2019-12-21] MEDS: PANTOPRAZOLE 20 MG TABLET PO SCH (10:16)
[2019-12-21] MEDS: NICOTINE 7 MG/24 HOURS TOPICAL PATCH TD SCH (10:17)
[2019-12-21] MEDS: THIAMINE HCL 100 MG TABLET (FP) PO SCH (21:04)
[2019-12-21] MEDS: MELATONIN 5 MG TABLETS PO SCH (21:04)
[2019-12-21] MEDS: traZODone HCL 50 MG TABLET (FP) PO SCH (21:04)
[2019-12-21] MEDS: NAPROXEN 500 MG TABLET PO PRN (21:05)
[2019-12-22] MEDS: hydrOXYzine PAMOATE 25 MG CAPSULE (FP) PO SCH ×6 (01:58→21:35)
[2019-12-22] MEDS: PRENATAL VITAMINS W/ FOLIC ACID TABLET (FP) PO SCH (10:52)
[2019-12-22] MEDS: PANTOPRAZOLE 20 MG TABLET PO SCH (10:53)
[2019-12-22] MEDS: NAPROXEN 500 MG TABLET PO PRN ×3 (10:53→21:35)
[2019-12-22] MEDS: CITALOPRAM HYDROBROMIDE 10 MG TABLET PO SCH (10:53)
[2019-12-22] MEDS: NICOTINE 7 MG/24 HOURS TOPICAL PATCH TD SCH (10:53)
[2019-12-22] MEDS: THIAMINE HCL 100 MG TABLET (FP) PO SCH (21:35)
[2019-12-22] MEDS: traZODone HCL 50 MG TABLET (FP) PO SCH (21:36)
[2019-12-22] MEDS: MELATONIN 5 MG TABLETS PO SCH (21:36)
[2019-12-23] MEDS: hydrOXYzine PAMOATE 25 MG CAPSULE (FP) PO SCH ×6 (02:04→21:02)
[2019-12-23] MEDS: CITALOPRAM HYDROBROMIDE 10 MG TABLET PO SCH (10:03)
[2019-12-23] MEDS: NICOTINE 7 MG/24 HOURS TOPICAL PATCH TD SCH (10:03)
[2019-12-23] MEDS: PANTOPRAZOLE 20 MG TABLET PO SCH (10:03)
[2019-12-23] MEDS: PRENATAL VITAMINS W/ FOLIC ACID TABLET (FP) PO SCH (10:03)
[2019-12-23] MEDS: ALBUTEROL SO4 HFA INHALER IH PRN ×2 (10:04→21:03)
[2019-12-23] MEDS: MELATONIN 5 MG TABLETS PO SCH (21:02)
[2019-12-23] MEDS: THIAMINE HCL 100 MG TABLET (FP) PO SCH (21:02)
[2019-12-23] MEDS: traZODone HCL 50 MG TABLET (FP) PO SCH (21:02)
[2019-12-23] MEDS: NAPROXEN 500 MG TABLET PO PRN (21:03)
[2019-12-24] MEDS: hydrOXYzine PAMOATE 25 MG CAPSULE (FP) PO SCH ×6 (03:23→22:50)
[2019-12-24] MEDS: NAPROXEN 500 MG TABLET PO PRN (07:22)
[2019-12-24] MEDS: PRENATAL VITAMINS W/ FOLIC ACID TABLET (FP) PO SCH (10:33)
[2019-12-24] MEDS: PANTOPRAZOLE 20 MG TABLET PO SCH (10:33)
[2019-12-24] MEDS: CITALOPRAM HYDROBROMIDE 10 MG TABLET PO SCH (10:33)
[2019-12-24] MEDS: NICOTINE 7 MG/24 HOURS TOPICAL PATCH TD SCH (10:33)
[2019-12-24] MEDS: ACETAMINOPHEN 325 MG TABLET (FP) PO PRN (18:07)
[2019-12-24] MEDS: MELATONIN 5 MG TABLETS PO SCH (22:50)
[2019-12-24] MEDS: traZODone HCL 50 MG TABLET (FP) PO SCH (22:50)
[2019-12-24] MEDS: THIAMINE HCL 100 MG TABLET (FP) PO SCH (22:50)
[2019-12-25] MEDS: hydrOXYzine PAMOATE 25 MG CAPSULE (FP) PO SCH ×6 (03:01→21:44)
[2019-12-25] MEDS: ACETAMINOPHEN 325 MG TABLET (FP) PO PRN (06:39)
[2019-12-25] MEDS: PRENATAL VITAMINS W/ FOLIC ACID TABLET (FP) PO SCH (10:03)
[2019-12-25] MEDS: PANTOPRAZOLE 20 MG TABLET PO SCH (10:03)
[2019-12-25] MEDS: NAPROXEN 500 MG TABLET PO PRN ×2 (10:03→21:44)
[2019-12-25] MEDS: CITALOPRAM HYDROBROMIDE 10 MG TABLET PO SCH (10:04)
[2019-12-25] MEDS: NICOTINE 7 MG/24 HOURS TOPICAL PATCH TD SCH (10:04)
[2019-12-25] MEDS ORDERED: PT OWN MED DRAWER 7, Y5N ONE (21:43)
[2019-12-25] MEDS: THIAMINE HCL 100 MG TABLET (FP) PO SCH (21:44)
[2019-12-25] MEDS: ALBUTEROL SO4 HFA INHALER IH PRN (21:44)
[2019-12-25] MEDS: traZODone HCL 50 MG TABLET (FP) PO SCH (21:44)
[2019-12-25] MEDS: MELATONIN 5 MG TABLETS PO SCH (21:44)
[2019-12-26] MEDS: hydrOXYzine PAMOATE 25 MG CAPSULE (FP) PO SCH ×2 (02:00→06:00)
[2019-12-26] MEDS ORDERED: hydrOXYzine PAMOATE 25 MG CAPSULE (FP) PO PRN (08:40)
[2019-12-26] MEDS ORDERED: PT OWN MED DRAWER 7, Y5N ONE (09:15)
[2019-12-26] MEDS: NICOTINE 7 MG/24 HOURS TOPICAL PATCH TD SCH (10:02)
[2019-12-26] MEDS: CITALOPRAM HYDROBROMIDE 10 MG TABLET PO SCH (10:02)
[2019-12-26] MEDS: PANTOPRAZOLE 20 MG TABLET PO SCH (10:02)
[2019-12-26] MEDS: PRENATAL VITAMINS W/ FOLIC ACID TABLET (FP) PO SCH (10:02)
[2019-12-26] MEDS: ACETAMINOPHEN 325 MG TABLET (FP) PO PRN ×2 (10:03→21:04)
[2019-12-26] MEDS: THIAMINE HCL 100 MG TABLET (FP) PO SCH (21:03)
[2019-12-26] MEDS: traZODone HCL 50 MG TABLET (FP) PO SCH (21:03)
[2019-12-26] MEDS: MELATONIN 5 MG TABLETS PO SCH (21:03)
[2019-12-27] MEDS: PANTOPRAZOLE 20 MG TABLET PO SCH (09:42)
[2019-12-27] MEDS: PRENATAL VITAMINS W/ FOLIC ACID TABLET (FP) PO SCH (09:42)
[2019-12-27] MEDS: CITALOPRAM HYDROBROMIDE 10 MG TABLET PO SCH (09:42)
[2019-12-27] MEDS: ALBUTEROL SO4 HFA INHALER IH PRN (09:42)
[2019-12-27] MEDS: NICOTINE 7 MG/24 HOURS TOPICAL PATCH TD SCH (09:42)
[2019-12-27] MEDS: ACETAMINOPHEN 325 MG TABLET (FP) PO PRN ×2 (09:43→21:42)
[2019-12-27] MEDS: THIAMINE HCL 100 MG TABLET (FP) PO SCH (21:41)
[2019-12-27] MEDS: MELATONIN 5 MG TABLETS PO SCH (21:41)
[2019-12-27] MEDS: traZODone HCL 50 MG TABLET (FP) PO SCH (21:41)
[2019-12-28] MEDS: ACETAMINOPHEN 325 MG TABLET (FP) PO PRN ×2 (04:49→21:44)
[2019-12-28] MEDS: NICOTINE 7 MG/24 HOURS TOPICAL PATCH TD SCH (10:40)
[2019-12-28] MEDS: PRENATAL VITAMINS W/ FOLIC ACID TABLET (FP) PO SCH (10:40)
[2019-12-28] MEDS: PANTOPRAZOLE 20 MG TABLET PO SCH (10:41)
[2019-12-28] MEDS: NAPROXEN 500 MG TABLET PO PRN (13:39)
[2019-12-28] MEDS: CITALOPRAM HYDROBROMIDE 10 MG TABLET PO SCH (13:39)
[2019-12-28] MEDS: MELATONIN 5 MG TABLETS PO SCH (21:43)
[2019-12-28] MEDS: traZODone HCL 50 MG TABLET (FP) PO SCH (21:43)
[2019-12-28] MEDS: THIAMINE HCL 100 MG TABLET (FP) PO SCH (21:44)
[2019-12-29] MEDS: CITALOPRAM HYDROBROMIDE 10 MG TABLET PO SCH (09:59)
[2019-12-29] MEDS: PRENATAL VITAMINS W/ FOLIC ACID TABLET (FP) PO SCH (10:01)
[2019-12-29] MEDS: PANTOPRAZOLE 20 MG TABLET PO SCH (10:01)
[2019-12-29] MEDS: NICOTINE 7 MG/24 HOURS TOPICAL PATCH TD SCH (10:01)
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
[2019-12-29] MEDS: traZODone HCL 50 MG TABLET (FP) PO SCH (21:06)
[2019-12-29] MEDS: THIAMINE HCL 100 MG TABLET (FP) PO SCH (21:06)
[2019-12-29] MEDS: MELATONIN 5 MG TABLETS PO SCH (21:07)
[2019-12-29] MEDS: NAPROXEN 500 MG TABLET PO PRN (21:08)
[2019-12-30] MEDS: NAPROXEN 500 MG TABLET PO PRN ×2 (10:41→21:07)
[2019-12-30] MEDS: NICOTINE 7 MG/24 HOURS TOPICAL PATCH TD SCH (10:42)
[2019-12-30] MEDS: PRENATAL VITAMINS W/ FOLIC ACID TABLET (FP) PO SCH (10:42)
[2019-12-30] MEDS: CITALOPRAM HYDROBROMIDE 10 MG TABLET PO SCH (10:42)
[2019-12-30] MEDS: PANTOPRAZOLE 20 MG TABLET PO SCH (10:42)
[2019-12-30] MEDS: MELATONIN 5 MG TABLETS PO SCH (21:04)
[2019-12-30] MEDS: THIAMINE HCL 100 MG TABLET (FP) PO SCH (21:04)
[2019-12-30] MEDS: traZODone HCL 50 MG TABLET (FP) PO SCH (21:04)
[2019-12-31] MEDS: PRENATAL VITAMINS W/ FOLIC ACID TABLET (FP) PO SCH (10:27)
[2019-12-31] MEDS: CITALOPRAM HYDROBROMIDE 10 MG TABLET PO SCH (10:27)
[2019-12-31] MEDS: NICOTINE 7 MG/24 HOURS TOPICAL PATCH TD SCH (10:28)
[2019-12-31] MEDS: PANTOPRAZOLE 20 MG TABLET PO SCH (10:28)
[2019-12-31] MEDS: traZODone HCL 50 MG TABLET (FP) PO SCH (21:40)
[2019-12-31] MEDS: MELATONIN 5 MG TABLETS PO SCH (21:40)
[2019-12-31] MEDS: THIAMINE HCL 100 MG TABLET (FP) PO SCH (21:40)
[2019-12-31] MEDS: NAPROXEN 500 MG TABLET PO PRN (21:41)
[2020-01-01] MEDS: ACETAMINOPHEN 325 MG TABLET (FP) PO PRN (03:23)
[2020-01-01] MEDS: CITALOPRAM HYDROBROMIDE 10 MG TABLET PO SCH (09:57)
[2020-01-01] MEDS: NAPROXEN 500 MG TABLET PO PRN ×2 (09:57→21:11)
[2020-01-01] MEDS: PRENATAL VITAMINS W/ FOLIC ACID TABLET (FP) PO SCH (09:57)
[2020-01-01] MEDS: NICOTINE 7 MG/24 HOURS TOPICAL PATCH TD SCH (09:57)
[2020-01-01] MEDS: PANTOPRAZOLE 20 MG TABLET PO SCH (09:57)
[2020-01-01] MEDS: ALBUTEROL SO4 HFA INHALER IH PRN (09:58)
[2020-01-01] MEDS: THIAMINE HCL 100 MG TABLET (FP) PO SCH (21:10)
[2020-01-01] MEDS: MELATONIN 5 MG TABLETS PO SCH (21:11)
[2020-01-01] MEDS: traZODone HCL 50 MG TABLET (FP) PO SCH (21:11)
[2020-01-02] MEDS: NAPROXEN 500 MG TABLET PO PRN ×2 (06:28→16:46)
[2020-01-02] MEDS: ACETAMINOPHEN 325 MG TABLET (FP) PO PRN ×2 (09:40→22:17)
[2020-01-02] MEDS: PRENATAL VITAMINS W/ FOLIC ACID TABLET (FP) PO SCH (09:41)
[2020-01-02] MEDS: NICOTINE 7 MG/24 HOURS TOPICAL PATCH TD SCH (09:42)
[2020-01-02] MEDS: CITALOPRAM HYDROBROMIDE 10 MG TABLET PO SCH (09:42)
[2020-01-02] MEDS: PANTOPRAZOLE 20 MG TABLET PO SCH (09:42)
[2020-01-02] MEDS: THIAMINE HCL 100 MG TABLET (FP) PO SCH (22:12)
[2020-01-02] MEDS: traZODone HCL 50 MG TABLET (FP) PO SCH (22:12)
[2020-01-02] MEDS: MELATONIN 5 MG TABLETS PO SCH (22:18)
[2020-01-03] MEDS: PANTOPRAZOLE 20 MG TABLET PO SCH ×2 (10:28→11:23)
[2020-01-03] MEDS: NAPROXEN 500 MG TABLET PO PRN ×2 (10:28→21:28)
[2020-01-03] MEDS: NICOTINE 7 MG/24 HOURS TOPICAL PATCH TD SCH (10:28)
[2020-01-03] MEDS: PRENATAL VITAMINS W/ FOLIC ACID TABLET (FP) PO SCH (10:28)
[2020-01-03] MEDS: CITALOPRAM HYDROBROMIDE 10 MG TABLET PO SCH ×2 (10:28→10:54)
[2020-01-03] MEDS: THIAMINE HCL 100 MG TABLET (FP) PO SCH (21:27)
[2020-01-03] MEDS: traZODone HCL 50 MG TABLET (FP) PO SCH (21:27)
[2020-01-03] MEDS: ALBUTEROL SO4 HFA INHALER IH PRN (21:27)
[2020-01-03] MEDS: MELATONIN 5 MG TABLETS PO SCH (21:27)
[2020-01-04] MEDS: NAPROXEN 500 MG TABLET PO PRN ×2 (07:10→21:35)
[2020-01-04] MEDS: ACETAMINOPHEN 325 MG TABLET (FP) PO PRN (09:59)
[2020-01-04] MEDS: CITALOPRAM HYDROBROMIDE 10 MG TABLET PO SCH (10:00)
[2020-01-04] MEDS: NICOTINE 7 MG/24 HOURS TOPICAL PATCH TD SCH (10:00)
[2020-01-04] MEDS: PRENATAL VITAMINS W/ FOLIC ACID TABLET (FP) PO SCH (10:00)
[2020-01-04] MEDS: PANTOPRAZOLE 20 MG TABLET PO SCH (10:00)
[2020-01-04] MEDS: MELATONIN 5 MG TABLETS PO SCH (21:35)
[2020-01-04] MEDS: THIAMINE HCL 100 MG TABLET (FP) PO SCH (21:35)
[2020-01-04] MEDS: traZODone HCL 50 MG TABLET (FP) PO SCH (21:35)
[2020-01-05] MEDS: NAPROXEN 500 MG TABLET PO PRN ×2 (06:07→21:02)
[2020-01-05] MEDS: PRENATAL VITAMINS W/ FOLIC ACID TABLET (FP) PO SCH (10:01)
[2020-01-05] MEDS: CITALOPRAM HYDROBROMIDE 10 MG TABLET PO SCH (10:01)
[2020-01-05] MEDS: ACETAMINOPHEN 325 MG TABLET (FP) PO PRN (10:01)
[2020-01-05] MEDS: ALBUTEROL SO4 HFA INHALER IH PRN (10:02)
[2020-01-05] MEDS: NICOTINE 7 MG/24 HOURS TOPICAL PATCH TD SCH (10:03)
[2020-01-05] MEDS: PANTOPRAZOLE 20 MG TABLET PO SCH (10:03)
[2020-01-05] MEDS: traZODone HCL 50 MG TABLET (FP) PO SCH (21:03)
[2020-01-05] MEDS: THIAMINE HCL 100 MG TABLET (FP) PO SCH (21:03)
[2020-01-05] MEDS: MELATONIN 5 MG TABLETS PO SCH (21:03)
[2020-01-06] MEDS: NAPROXEN 500 MG TABLET PO PRN ×3 (09:56→21:26)
[2020-01-06] MEDS: CITALOPRAM HYDROBROMIDE 10 MG TABLET PO SCH (09:56)
[2020-01-06] MEDS: NICOTINE 7 MG/24 HOURS TOPICAL PATCH TD SCH (09:56)
[2020-01-06] MEDS: PANTOPRAZOLE 20 MG TABLET PO SCH (09:56)
[2020-01-06] MEDS: PRENATAL VITAMINS W/ FOLIC ACID TABLET (FP) PO SCH (09:56)
[2020-01-06] MEDS: ACETAMINOPHEN 325 MG TABLET (FP) PO PRN (15:02)
[2020-01-06] MEDS: MELATONIN 5 MG TABLETS PO SCH (21:26)
[2020-01-06] MEDS: traZODone HCL 50 MG TABLET (FP) PO SCH (21:27)
[2020-01-06] MEDS: THIAMINE HCL 100 MG TABLET (FP) PO SCH (21:27)
[2020-01-07] MEDS: PANTOPRAZOLE 20 MG TABLET PO SCH (10:01)
[2020-01-07] MEDS: PRENATAL VITAMINS W/ FOLIC ACID TABLET (FP) PO SCH (10:01)
[2020-01-07] MEDS: NICOTINE 7 MG/24 HOURS TOPICAL PATCH TD SCH (10:01)
[2020-01-07] MEDS: CITALOPRAM HYDROBROMIDE 10 MG TABLET PO SCH (10:01)
[2020-01-07] MEDS: traZODone HCL 50 MG TABLET (FP) PO SCH (21:03)
[2020-01-07] MEDS: THIAMINE HCL 100 MG TABLET (FP) PO SCH (21:04)
[2020-01-07] MEDS: MELATONIN 5 MG TABLETS PO SCH (21:04)
[2020-01-08] MEDS: NAPROXEN 500 MG TABLET PO PRN (06:13)
[2020-01-08] MEDS: PANTOPRAZOLE 20 MG TABLET PO SCH (09:28)
[2020-01-08] MEDS: CITALOPRAM HYDROBROMIDE 10 MG TABLET PO SCH (09:28)
[2020-01-08] MEDS: PRENATAL VITAMINS W/ FOLIC ACID TABLET (FP) PO SCH (09:28)
[2020-01-08] MEDS: NICOTINE 7 MG/24 HOURS TOPICAL PATCH TD SCH (09:28)
[2020-01-08] MEDS: traZODone HCL 50 MG TABLET (FP) PO SCH (21:30)
[2020-01-08] MEDS: MELATONIN 5 MG TABLETS PO SCH (21:31)
[2020-01-08] MEDS: THIAMINE HCL 100 MG TABLET (FP) PO SCH (21:31)
[2020-01-09] MEDS: PRENATAL VITAMINS W/ FOLIC ACID TABLET (FP) PO SCH (10:22)
[2020-01-09] MEDS: CITALOPRAM HYDROBROMIDE 10 MG TABLET PO SCH (10:22)
[2020-01-09] MEDS: NAPROXEN 500 MG TABLET PO PRN ×2 (10:22→21:02)
[2020-01-09] MEDS: PANTOPRAZOLE 20 MG TABLET PO SCH (10:23)
[2020-01-09] MEDS: NICOTINE 7 MG/24 HOURS TOPICAL PATCH TD SCH (10:23)
[2020-01-09] MEDS: MELATONIN 5 MG TABLETS PO SCH (21:02)
[2020-01-09] MEDS: THIAMINE HCL 100 MG TABLET (FP) PO SCH (21:02)
[2020-01-09] MEDS ORDERED: MASKS NR ONE (21:02)
[2020-01-09] MEDS: traZODone HCL 50 MG TABLET (FP) PO SCH (21:02)
[2020-01-10] MEDS: NAPROXEN 500 MG TABLET PO PRN ×2 (09:59→21:40)
[2020-01-10] MEDS: PRENATAL VITAMINS W/ FOLIC ACID TABLET (FP) PO SCH (09:59)
[2020-01-10] MEDS: CITALOPRAM HYDROBROMIDE 10 MG TABLET PO SCH (09:59)
[2020-01-10] MEDS: PANTOPRAZOLE 20 MG TABLET PO SCH (10:00)
[2020-01-10] MEDS: NICOTINE 7 MG/24 HOURS TOPICAL PATCH TD SCH (10:00)
--- NOTE | 2020-01-10 14:49 | PN ---
[facility] Progress Note Note: Patient has been accepted to [facility] pending a COVID 19 test. Ordered.
[2020-01-10] MEDS: MELATONIN 5 MG TABLETS PO SCH (21:41)
[2020-01-10] MEDS: traZODone HCL 50 MG TABLET (FP) PO SCH (21:41)
[2020-01-10] MEDS: THIAMINE HCL 100 MG TABLET (FP) PO SCH (21:41)
[2020-01-11] MEDS: NAPROXEN 500 MG TABLET PO PRN ×2 (06:51→21:08)
[2020-01-11] MEDS ORDERED: PT OWN MED DRAWER 7, Y5N ONE (09:01)
[2020-01-11] MEDS: NICOTINE 7 MG/24 HOURS TOPICAL PATCH TD SCH (09:05)
[2020-01-11] MEDS: PANTOPRAZOLE 20 MG TABLET PO SCH (09:05)
[2020-01-11] MEDS: CITALOPRAM HYDROBROMIDE 10 MG TABLET PO SCH (09:05)
[2020-01-11] MEDS: PRENATAL VITAMINS W/ FOLIC ACID TABLET (FP) PO SCH (09:05)
[2020-01-11] MEDS: ACETAMINOPHEN 325 MG TABLET (FP) PO PRN (09:09)
--- NOTE | 2020-01-11 10:44 | PN ---
[facility] Progress Note Note: Patient c/o of a "problem" in a private area of his body. He told the nurse he had a problem, however, he refused to allow the nurse to see the issue. I attempted to see the patient to investigate his problem and examine him. However, he refused to allow me to see the area (possibly his genitalia or his buttocks) because he said "it was embarrassing." The nurse and I explained that we were professionals and that we just needed to see the area in order to determine the best treatment. Patient refused to allow us to see the area. We offered to find a male healthcare professional if that would make him feel more comfortable, but he continued to refused. P/E; patient refused examination or to tell this provider where the problem was located on his body Vital Signs Period Temp Pulse Resp BP Sys/Banuelos Pulse Ox Last 24 Hr 97.1 F-97.3 F 91-98 18-18 114-115/72-75 96-97 a/p Medical problem of unknown origin or type: will continue to encourage patient to allow a healthcare provider to see the problem
[2020-01-11] MEDS: THIAMINE HCL 100 MG TABLET (FP) PO SCH (21:06)
[2020-01-11] MEDS: traZODone HCL 50 MG TABLET (FP) PO SCH (21:06)
[2020-01-11] MEDS: MELATONIN 5 MG TABLETS PO SCH (21:06)
[2020-01-12] MEDS: CITALOPRAM HYDROBROMIDE 10 MG TABLET PO SCH (09:54)
[2020-01-12] MEDS: PRENATAL VITAMINS W/ FOLIC ACID TABLET (FP) PO SCH (09:54)
[2020-01-12] MEDS: PANTOPRAZOLE 20 MG TABLET PO SCH (09:54)
[2020-01-12] MEDS: NICOTINE 7 MG/24 HOURS TOPICAL PATCH TD SCH (09:54)
[2020-01-12] MEDS: NAPROXEN 500 MG TABLET PO PRN (09:54)
[2020-01-12] MEDS: ACETAMINOPHEN 325 MG TABLET (FP) PO PRN (14:46)
[2020-01-12] MEDS: MELATONIN 5 MG TABLETS PO SCH (21:34)
[2020-01-12] MEDS: THIAMINE HCL 100 MG TABLET (FP) PO SCH (21:34)
[2020-01-12] MEDS: traZODone HCL 50 MG TABLET (FP) PO SCH (21:36)
[2020-01-13] MEDS: CITALOPRAM HYDROBROMIDE 10 MG TABLET PO SCH (10:49)
[2020-01-13] MEDS: NICOTINE 7 MG/24 HOURS TOPICAL PATCH TD SCH (10:49)
[2020-01-13] MEDS: PANTOPRAZOLE 20 MG TABLET PO SCH (10:49)
[2020-01-13] MEDS: PRENATAL VITAMINS W/ FOLIC ACID TABLET (FP) PO SCH (10:49)
[2020-01-13] MEDS ORDERED: PT OWN MED DRAWER 7, Y5N ONE (12:10)
[2020-01-13] MEDS: NAPROXEN 500 MG TABLET PO PRN (12:54)
[2020-01-13] MEDS: ACETAMINOPHEN 325 MG TABLET (FP) PO PRN (21:06)
[2020-01-13] MEDS: traZODone HCL 50 MG TABLET (FP) PO SCH (21:06)
[2020-01-13] MEDS: THIAMINE HCL 100 MG TABLET (FP) PO SCH (21:07)
[2020-01-13] MEDS: MELATONIN 5 MG TABLETS PO SCH (21:07)
[2020-01-14] MEDS: ACETAMINOPHEN 325 MG TABLET (FP) PO PRN ×2 (09:48→21:38)
[2020-01-14] MEDS: PANTOPRAZOLE 20 MG TABLET PO SCH (09:48)
[2020-01-14] MEDS: PRENATAL VITAMINS W/ FOLIC ACID TABLET (FP) PO SCH (09:48)
[2020-01-14] MEDS: NICOTINE 7 MG/24 HOURS TOPICAL PATCH TD SCH (09:48)
[2020-01-14] MEDS: CITALOPRAM HYDROBROMIDE 10 MG TABLET PO SCH (09:48)
[2020-01-14] MEDS ORDERED: PT OWN MED DRAWER 7, Y5N ONE (13:13)
[2020-01-14] MEDS: traZODone HCL 50 MG TABLET (FP) PO SCH (21:40)
[2020-01-14] MEDS: MELATONIN 5 MG TABLETS PO SCH (21:41)
[2020-01-14] MEDS: THIAMINE HCL 100 MG TABLET (FP) PO SCH (21:41)
[2020-01-15] MEDS ORDERED: MASKS NR ONE (07:17)
[2020-01-15] MEDS: CITALOPRAM HYDROBROMIDE 10 MG TABLET PO SCH (10:19)
[2020-01-15] MEDS: NICOTINE 7 MG/24 HOURS TOPICAL PATCH TD SCH (10:19)
[2020-01-15] MEDS: PANTOPRAZOLE 20 MG TABLET PO SCH (10:20)
[2020-01-15] MEDS: PRENATAL VITAMINS W/ FOLIC ACID TABLET (FP) PO SCH (10:22)
[2020-01-15] MEDS: ACETAMINOPHEN 325 MG TABLET (FP) PO PRN (10:23)
[2020-01-15] MEDS ORDERED: PT OWN MED DRAWER 7, Y5N ONE (16:56)
[2020-01-15] MEDS: ALBUTEROL SO4 HFA INHALER IH PRN (16:57)
[2020-01-15] MEDS: THIAMINE HCL 100 MG TABLET (FP) PO SCH (21:08)
[2020-01-15] MEDS: traZODone HCL 50 MG TABLET (FP) PO SCH (21:08)
[2020-01-15] MEDS: MELATONIN 5 MG TABLETS PO SCH (21:08)
[2020-01-16] MEDS: PRENATAL VITAMINS W/ FOLIC ACID TABLET (FP) PO SCH (10:18)
[2020-01-16] MEDS: NAPROXEN 500 MG TABLET PO PRN (10:19)
[2020-01-16] MEDS: PANTOPRAZOLE 20 MG TABLET PO SCH (10:19)
[2020-01-16] MEDS: CITALOPRAM HYDROBROMIDE 10 MG TABLET PO SCH (10:19)
[2020-01-16] MEDS: NICOTINE 7 MG/24 HOURS TOPICAL PATCH TD SCH (10:20)
--- NOTE | 2020-01-16 14:21 | PN ---
[facility] Progress Note Note: Patient is scheduled for discharge tomorrow. Scripts for 30 days supply of medications(Celexa 10 mg/day, Trazadone 50 mg/hs) will be electronically transmitted to [facility] [address] [address]
[2020-01-16 21:05] VITALS: TEMP 97.5
[2020-01-16] MEDS: traZODone HCL 50 MG TABLET (FP) PO SCH (22:10)
[2020-01-16] MEDS: MELATONIN 5 MG TABLETS PO SCH (22:10)
[2020-01-16] MEDS: THIAMINE HCL 100 MG TABLET (FP) PO SCH (22:10)
[2020-01-17 07:21] VITALS: BP 113/88; PULSE 92
--- NOTE | 2020-01-17 14:03 | DS ---
[facility] Rehab Discharge Summary - [facility] Rehab Discharge Summary Admission Date: 12/20/19 Discharge Date: 01/17/20 - History Present History: Alcohol dependence, Cannabis dependence, Cocaine dependence Pertinent Past History: asthma Gerd Depression - Discharge Physical Exam Vital Signs: Vital Signs Temperature 97.5 F L 01/17/20 06:13 Pulse Rate 92 H 01/17/20 06:13 Respiratory Rate 18 01/17/20 06:13 Blood Pressure 113/88 01/17/20 06:13 O2 Sat by Pulse Oximetry (%) 99 01/17/20 06:13 General:WDWN male, Alert o x 3 Resp:no difficulty MSK:Ambulating with steady gait, Active FROM, all limbs, no edema skin: intact Pertinent Admission Physical Exam Findings: Laboratory Tests 01/10/20 10:55 COVID-19 ([facility]) Not detected - Treatment Discharge Condition: Discharge condition good, Rehabilitated safely, Responded well, Outpatient referral accepted Hospital Course: Referred to [facility] aftercare - Medication Discharge Medications: Ambulatory Orders Famotidine [Pepcid] 20 mg PO BID 5 Days #10 tablet 11/12/17 Glycopyrrolate/Formoterol Fum [Bevespi Aerosphere Inhaler] 10.7 gm IH DAILY #1 hfa.aer.ad 11/12/17 traZODone HCL [Trazodone HCl] 50 mg PO HS 12/04/17 Citalopram Hydrobromide [Celexa -] 10 mg PO DAILY 12/15/19 Naproxen [Naprosyn -] 500 mg PO BID PRN tablet 12/20/19 Albuterol Sulfate Inhaler - [Ventolin HFA Inhaler -] 2 puff IH Q4H PRN #1 inhaler 01/16/20 Citalopram Hydrobromide [Celexa -] 10 mg PO DAILY #30 tablet 01/16/20 Pantoprazole Sodium [Protonix -] 20 mg PO DAILY #14 tablet.ec 01/16/20 traZODone HCL [Desyrel -] 50 mg PO HS #30 tablet 01/16/20 - Medication-Assisted Treatment (MAT) Medication-Assisted Treatment (MAT): No - Discharge Instructions Diet, activity, other medical instructions: Diet:Regular Activity: oob d arely Other medical instructions:follow up with [facility] aftercare s scheduled. Follow up with your PCP, Dr. Enriquez [address] [place] [address] for medical management. - Diagnosis (1) Alcohol dependence Status: Chronic Qualifiers: Substance use status: uncomplicated Qualified Code(s): F10.20 - Alcohol dependence, uncomplicated (2) Cannabis dependence Status: Chronic (3) Cocaine dependence Status: Chronic Qualifiers: Substance use status: uncomplicated Qualified Code(s): F14.20 - Cocaine dependence, uncomplicated (4) Asthma Status: Chronic Qualifiers: Asthma severity: unspecified severity Asthma persistence: unspecified Asthma complication type: unspecified Qualified Code(s): J45.909 - Unspecified asthma, uncomplicated (5) GERD (gastroesophageal reflux disease) Status: Chronic Qualifiers: Esophagitis presence: esophagitis presence not specified Qualified Code(s): K21.9 - Gastro-esophageal reflux disease without esophagitis - Follow-up Referral Minutes to complete discharge: 20 - AMA Did Patient Leave Against Medical Advice: No
== END 2020-01-17 08:25 | disposition other institution (70) | DRG 772 ==
LOC: YASAS 11:34 → Y3W 11:38
PROVIDERS: ADMIT Allergy & Immunology; ATTEND Allergy & Immunology
PROC: HZ42ZZZ Group Counseling for Substance Abuse Treatment, Cognitive-Behavioral (ICD-10-PCS; principal; 2019-12-20)
DX: F10.20 Alcohol dependence, uncomplicated (principal); F14.20 Cocaine dependence, uncomplicated; F12.20 Cannabis dependence, uncomplicated; F17.210 Nicotine dependence, cigarettes, uncomplicated; F32.9 Major depressive disorder, single episode, unspecified; J45.909 Unspecified asthma, uncomplicated; K21.9 Gastro-esophageal reflux disease without esophagitis; F91.8 Other conduct disorders; Z91.018 Allergy to other foods
CPT/HCPCS: U0003

== ENCOUNTER 2024-12-04 01:35 | Inpatient (IN) | payer OTHER ==
[2024-12-04 01:38] VITALS: BMI 24.3
[2024-12-04] MEDS ORDERED: MAGNESIUM HYDROX 2400MG/30ML ORAL SUSPENSION 30 ML CUP PO PRN (02:07)
[2024-12-04] MEDS ORDERED: guaiFENesin 600 MG TABLET.ER (FP) PO PRN (02:07)
[2024-12-04] MEDS ORDERED: NICOTINE POLACRILEX 2 MG GUM BUC PRN (02:07)
[2024-12-04] MEDS ORDERED: NALOXONE (NARCAN) HCL 4 MG/0.1 ML SPRAY NS PRN (02:07)
[2024-12-04] MEDS ORDERED: LOPERAMIDE HCL 2 MG CAPSULE PO PRN (02:07)
[2024-12-04] MEDS ORDERED: MAG HYDROX/AL HYDROX/SIMETH 30 ML UNIT-DOSE CUP PO PRN (02:07)
[2024-12-04] MEDS ORDERED: BENZOCAINE/MENTHOL (CHLORASEPTIC ) LOZENGE MM PRN (02:07)
[2024-12-04] MEDS ORDERED: POLYETHYLENE GLYCOL (HEALTHYLAX) 3350 17 GM PACKET PO PRN (02:07)
[2024-12-04] MEDS ORDERED: BENZONATATE 200 MG CAPSULE PO PRN (02:07)
[2024-12-04] MEDS ORDERED: ALBUTEROL SO4 HFA INHALER IH PRN (02:58)
[2024-12-04 08:58] LABS: MCHC 33.3 g/dl (32.3-36.5); MEAN CELL VOLUME 93.5 fl (79.0-92.2); MEAN PLT VOLUME 10.3 fl (9.4-12.4); RDW 13.5 % (12.2-16.1)
[2024-12-04 09:01] LABS: CO2 29 mmol/L (21-32); GLUCOSE,RANDOM 86 mg/dL (74-106)
[2024-12-04 09:04] LABS: CREATININE 0.9 mg/dL (0.55-1.3); SGOT/AST 14 U/L (15-37); SGPT/ALT 20 U/L (13-61)
[2024-12-04 09:05] LABS: TOT PROT 6.5 g/dl (6.4-8.2)
[2024-12-04 09:06] LABS: ALK PHOS 75 U/L (45-117)
[2024-12-04] MEDS: PRENATAL VITAMINS W/ FOLIC ACID TABLET (FP) PO SCH (09:50)
[2024-12-04] MEDS: NICOTINE 14 MG/24 HOURS TOPICAL PATCH TD SCH (09:50)
[2024-12-04] MEDS: hydrOXYzine PAMOATE 25 MG CAPSULE (FP) PO PRN (09:51)
[2024-12-04] MEDS ORDERED: TUBERCULIN PPD 5 TU/0.1ML VIAL ID ONE (11:02)
[2024-12-04] MEDS: TUBERCULIN PPD 5 TU/0.1ML SYRINGE (IN PATIENT USE ONLY) ID ONE (12:00)
[2024-12-04 12:50] LABS: SYPHILIS W/ RPR CONF NON-REACTIVE (NONREACTIVE)
[2024-12-04] MEDS: MELATONIN 5 MG TABLETS PO SCH (22:17)
[2024-12-04] MEDS: THIAMINE 100 MG TABLET PO SCH (22:17)
[2024-12-05] MEDS: CITALOPRAM HYDROBROMIDE 10 MG TABLET PO SCH (12:28)
[2024-12-05 14:42] LABS: EPI CELLS 7 /uL (0-25.1); HYALINE CASTS 1 /uL (0-3.1); URINE APPEARANCE CLEAR; URINE BACTERIA 140 /uL (0-1359); URINE BILIRUBIN NEGATIVE (NEGATIVE); URINE COLOR YELLOW; URINE GLUCOSE (UA) NEGATIVE (NEGATIVE); URINE KETONE NEGATIVE (NEGATIVE); URINE LEUK ESTERASE TRACE (NEGATIVE); URINE NITRITE NEGATIVE (NEGATIVE); URINE PROTEIN NEGATIVE (NEGATIVE); URINE RBC 11 /uL (0-23.9); URINE UROBILINOGEN 0.2 mg/dL (0.2-1.0); URINE WBC 17 /uL (0-25.8)
[2024-12-05 21:00] LABS: HCV DIAGNOSTIC IN-HOUSE W/RFLX NON-REACTIVE (NONREACTIVE)
[2024-12-06] MEDS: IBUPROFEN 600 MG TABLET (FP) PO PRN (09:51)
[2024-12-16] MEDS: ACETAMINOPHEN 325 MG TABLET (FP) PO PRN (10:39)
[2024-12-20] MEDS ORDERED: LIDOCAINE HCL 5% TOP OINTMENT 50 GM TUBE TP PRN (10:06)
[2024-12-25] MEDS: IBUPROFEN 400 MG TABLET (FP) PO PRN (21:05)
[2024-12-26 06:41] VITALS: BP 123/86; PULSE 71; RESP 18; TEMP 97.5
== END 2024-12-26 09:18 | disposition home or self-care (01) | DRG 772 ==
LOC: YASAS 01:35 → Y5N 04:05
PROVIDERS: ADMIT Allergy & Immunology; ATTEND Psychiatry & Neurology Pain Medicine
PROC: HZ42ZZZ Group Counseling for Substance Abuse Treatment, Cognitive-Behavioral (ICD-10-PCS; principal; 2024-12-04)
DX: F14.10 Cocaine abuse, uncomplicated (principal); F16.20 Hallucinogen dependence, uncomplicated; F17.210 Nicotine dependence, cigarettes, uncomplicated; F32.9 Major depressive disorder, single episode, unspecified; J45.20 Mild intermittent asthma, uncomplicated; Z59.00 Homelessness unspecified
CPT/HCPCS: 36415; 80053; 80305; 80307; 81003; 85027; 86780; 86803; 87811; 93005; 93010